=== PATIENT | female | born 1955 | race Two or more races ===

== ENCOUNTER 2021-01-30 06:47 | Day surgery (SDC) | payer OTHER | END 2021-01-30 11:20 | disposition home or self-care (01) | LOC: AMB-ENDOS 06:47 | PROVIDERS: ATTEND Colon & Rectal Surgery | DX: K57.32 Diverticulitis of large intestine without perforation or abscess without bleeding (principal); K64.2 Third degree hemorrhoids; Z20.822 Contact with and (suspected) exposure to COVID-19 ==

== ENCOUNTER 2022-09-13 07:20 | Outpatient (CLI) | payer OTHER | END 2022-09-13 07:27 | disposition home or self-care (01) | LOC: TOM 07:20 | PROVIDERS: ATTEND Colon & Rectal Surgery | DX: K56.50 Intestinal adhesions [bands], unspecified as to partial versus complete obstruction (principal) ==